=== PATIENT | female | born 1985 | race Caucasian/White ===

== ENCOUNTER 2016-11-14 21:01 | Observation (INO) | payer OTHER ==
[2016-11-14] VITALS (17 sets, daily range): BP systolic 115–125; BP diastolic 63–71; PULSE 79–94; RESP 18; TEMP 98
[~2016-11-14 21:01] MED LIST: IBUP400T20 PO; PERC5TAB12 PO; PROV5TAB PO; ZOFR8TAB4 PO
[2016-11-14] MEDS ORDERED: LACTATED RINGER'S 1000 ML INJ 500 ML IV ONE (21:48)
[2016-11-14] MEDS: LACTATED RINGER'S 1000 ML INJ 1,000 ML IV SCH (21:48)
--- NOTE | 2016-11-14 21:48 | PD ---
HPI Chief Complaint Contractions and back pain Date Seen: Nov 14, 2016 Time Seen: 21:42 Travel History International Travel<30 Days: No Contact w/Intl Traveler<30Days: No Known Affected Area: No History of Present Illness HPI 31-year-old patient Ab1 who comes in at 34 weeks and 1 day complaining of contractions that have increased in frequency and intensity since 4 PM today as well as lower back pain. Patient attempted hydration this afternoon but noticed her contractions continued and became quite painful. Patient denies vaginal discharge, vaginal bleeding. Patient does have good movement. Patient patient has had 2 prior term vaginal deliveries and no history of labor complaints with either this or her previous 2 pregnancies. Patient denies coitus recently and denies antepartum complications with this . Para: 2 : 4 Miscarriage: 1 History Past Medical History Medical History: Denies Significant Hx Obstetric History Obstetric History 2, 7 lbs. 2 oz., 7 lbs. 8 oz. 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 Alcohol Use: No Tobacco Use: No Substance Abuse: No Allergies-Medications (Allergen,Severity, Reaction): Coded Allergies: Cipro (Verified Allergy, Severe, Swelling, HIVES, 11/20/12) Diflucan (Verified Allergy, Severe, SWELLING,HIVES, 11/20/12) Home Meds Reported Medications Ondansetron (Zofran Odt)8 Mg Tab8 Mg PO Q8 PRN (NAUSEA OR VOMITING) 02/18/16 Oxycodone-Acetaminophen 5-325 mg (Percocet 5-325 mg)1 Tab1-2 Tab PO Q4H PRN ( PAIN) Ref 0 02/18/16 Ibuprofen (Motrin)400 Mg Mmo152 Mg PO ONCE #1 TAB 02/18/16 Medroxyprogesterone Acetate (Provera)5 Mg Tab5 Mg PO DAILY 02/18/16 Review of Systems Except as stated in HPI: all other systems reviewed are Neg Physical Exam Narrative GENERAL: Well-nourished, well-developed patient. SKIN: Warm and dry. HEAD: Normocephalic and atraumatic. EYES: No scleral icterus. No injection or drainage. ENT: No nasal drainage noted. Mucous membranes pink. Airway patent. NECK: Supple, trachea midline. No JVD. CARDIOVASCULAR: Regular rate and rhythm without murmurs, gallops, or rubs. RESPIRATORY: Breath sounds equal bilaterally. No accessory muscle use. ABDOMEN/GI: Abdomen soft, non-tender, bowel sounds present, no rebound, no guarding Gravid to [35-] weeks size Fundal Height: [-] GENITOURINARY: External Genitalia: intact and normal in appearance BUS glands: [Normal-] Cervix: [midposition] Dilatation: [1-2] Effacement: [80-] Station: [-2] Presentation: [vtx] Membranes: [intact ] Uterine Contractions: [-q5] FHT's: Category: [-1] Baseline: [140-] Reactive: [Moderate-] Variability: [Moderate-] Decels: [Absent-] EXTREMITIES: No cyanosis or edema. BACK: Nontender without obvious deformity. No CVA tenderness. NEUROLOGICAL: Awake and alert. Motor and sensory grossly within normal limits. Five out of 5 muscle strength in all muscle groups. Normal speech. Data Data Vital Signs Reviewed: Yes MDM Plan at [id number] with threatened labor Plan magnesium sulfate with betamethasone Start Ampicillin for prophylaxis Sonogram in am Dr Stout notified of patient status Diagnosis Diagnosis: Primary Impression: 34 weeks gestation of Additional Impression: Threatened labor, antepartum Rossi Shah MD Nov 14, 2016 21:48
[2016-11-14] MEDS ORDERED: ONDANSETRON HCL 4 MG/2 ML VIAL IV PRN (22:00)
[2016-11-14] MEDS ORDERED: ZOLPIDEM TARTRATE 5 MG TAB PO PRN (22:00)
[2016-11-14] MEDS ORDERED: MAGNESIUM SULFATE 4 GM PREMIX 100 ML IV ONE (22:00)
[2016-11-14] MEDS ORDERED: CALCIUM GLUCONATE 10% 1 GM/10 ML VIAL IV PRN (22:00)
[2016-11-14] MEDS ORDERED: SODIUM CHLORIDE 0.9% FLUSH 10 ML FLUSH IV FLUSH PRN (22:00)
[2016-11-14] MEDS ORDERED: PENICILLIN G POTASSIUM INJ 5,000,000 UNITS in SODIUM CHLORIDE 0.9% INJ 100 ML IV SCH (22:00)
[2016-11-14] MEDS: BETAMETHASONE SOD PHOS/ACETATE SUSP 30 MG/5 ML VIAL IM SCH (22:23)
[2016-11-14] MEDS: MAGNESIUM SULFATE 40 GM PREMIX 1,000 ML IV SCH (22:26)
[2016-11-14 22:41] LABS: AUTOMATED NEUTROPHIL # 9.1 TH/MM3 (1.8-7.7); BASOPHIL % 0.3 % (0.0-2.0); EOSINOPHIL # 0.2 TH/MM3 (0-0.4); EOSINOPHIL % 1.6 % (0.0-4.0); HEMATOCRIT 35.7 % (35.0-46.0); HEMO FLAGS DIFF FINAL; LYMPH % 19.9 % (9.0-44.0); LYMPHOCYTE # 2.6 TH/MM3 (1.0-4.8); MEAN CELL VOLUME 88.7 FL (80.0-100.0); MEAN CORPUSCULAR HEMOGLOBIN 29.7 PG (27.0-34.0); MEAN CORPUSCULAR HGB CONC 33.4 % (32.0-36.0); MONO % 7.1 % (0.0-8.0); NEUT % 71.1 % (16.0-70.0); PLATELET COUNT 172 TH/MM3 (150-450); RED BLOOD COUNT 4.02 MIL/MM3 (4.00-5.30); RED CELL DISTRIBUTION WIDTH 13.6 % (11.6-17.2); WHITE BLOOD COUNT 12.8 TH/MM3 (4.0-11.0)
[2016-11-14 22:50] LABS: AMPHETAMINE, URINE NEG (NEG); BARBITURATES, URINE NEG (NEG); COCAINE, URINE NEG (NEG)
[2016-11-14 23:26] LABS: RUBELLA IGG ANTIBODY 109.5 IU/mL (10.0-500.0); RUBELLA STATUS IMMUNE (IMMUNE)
[2016-11-15] VITALS (201 sets, daily range): BP systolic 105–132; BP diastolic 58–77; PULSE 44–185; RESP 16–18; TEMP 97.8–97.9
[2016-11-15] MEDS ORDERED: PENICILLIN G POTASSIUM INJ 2,500,000 UNITS in SODIUM CHLORIDE 0.9% INJ 100 ML IV SCH ×2
[2016-11-15] MEDS ORDERED: PENICILLIN G POTASSIUM INJ 5,000,000 UNITS in SODIUM CHLORIDE 0.9% INJ 100 ML IV SCH (01:00)
[2016-11-15] MEDS ORDERED: ONDANSETRON HCL 4 MG/2 ML VIAL IV PUSH PRN (01:15)
[2016-11-15] MEDS: PENICILLIN G POTASSIUM INJ 2,500,000 UNITS in SODIUM CHLORIDE 0.9% INJ 100 ML IV SCH ×3 (05:00→13:00)
[2016-11-15] MEDS: LACTATED RINGER'S 1000 ML INJ 1,000 ML IV SCH ×2 (05:48→11:49)
--- NOTE | 2016-11-15 07:25 | MB ---
cc: STEVEN RODRIGUES DATE OF CONSULTATION 11/15/2016 @ 7 a.m. REASON FOR EVALUATION labor, at 34 weeks. HISTORY OF PRESENT ILLNESS The patient is a 31-year-old white female, para 2-0-1-2, LMP of 03/19/2016, EDC of 12/24/2016. She had onset of lower abdominal and back pain at about 4 p.m. yesterday that she was concerned might be labor. She called at 8 p.m. and was advised to come into L&D for evaluation. She was having regular contractions which were painful. She had early dilation of the cervix at 1-2 cm, 70%, vertex, intact, -2. She was seen by Dr. Shah, the hospitalist who conferred with me on the findings of labor. We agreed it would be prudent to start her on magnesium sulfate therapy and give her two doses of to enhance lung maturity and eventually to progress to delivery. She was admitted, placed on magnesium sulfate therapy, received her first dose of steroids and since her contractions have subsided. PAST MEDICAL HISTORY PREVIOUS SURGERY 1. January of 2016 she had laparoscopy, hysteroscopy, D&C. 2. T&A at age 5. MEDICATIONS Vitamins. ALLERGIES CIPRO. DIFLUCAN. PREVIOUS OB HISTORY Term delivery in 2004. In 2005 she had a miscarriage at 9 weeks, required D&C. In 2012 had a term delivery. SOCIAL HISTORY She is . She works in [employer] at [employer]. Alcohol, tobacco and drugs are none. FAMILY HISTORY Non-contributory. PHYSICAL EXAMINATION GENERAL: A well-developed, well-nourished white female. VITAL SIGNS: Stable. HEENT EXAM: Normal. CHEST: Clear. HEART: Regular rate. ABDOMEN: Gravid, nontender. EFW of 2100 grams. PELVIC EXAM: Cervix per Dr. Bhakta, as stated above. EXTREMITIES: Normal. ASSESSMENT As above. PLAN We will plan to continue magnesium sulfate for 24 hours until she can complete steroid therapy and then wean off and if stable discharge home tomorrow. Discussed limitations to treat labor, the risks and benefits of treatment and the patient has been agreeable with the treatment plan. I discussed the plan with her via phone last night after she had seen Dr. Shah as well. MD GUIDO Mcginnis/JEFFERY /7:11 AM /7:15 AM
[2016-11-15] MEDS: SODIUM CHLORIDE 0.9% FLUSH 10 ML FLUSH IV FLUSH SCH ×2 (08:43→20:30)
[2016-11-15 14:12] LABS: RAPID PLASMA REAGIN SCREEN NON-REACTIVE (NON-REACTVE)
[2016-11-15] MEDS: MAGNESIUM SULFATE 40 GM PREMIX 1,000 ML IV SCH ×2 (17:07→21:48)
[2016-11-15] MEDS: BETAMETHASONE SOD PHOS/ACETATE SUSP 30 MG/5 ML VIAL IM SCH (21:55)
[2016-11-16] VITALS (55 sets, daily range): BP systolic 117–127; BP diastolic 57–64; PULSE 72–175; RESP 16
[2016-11-16] MEDS: LACTATED RINGER'S 1000 ML INJ 1,000 ML IV SCH (01:00)
== END 2016-11-16 14:00 | disposition home or self-care (01) ==
LOC: HOBED 21:01 → H2EA 21:44 → UNDOADMIN 21:44 → H2EA 21:52
PROVIDERS: ADMIT Obstetrics & Gynecology; ATTEND Obstetrics & Gynecology
DX: O60.03 Preterm labor without delivery, third trimester (principal); Z3A.34 34 weeks gestation of pregnancy
CPT/HCPCS: 59025; 76816; 80074; 80307; 85025; 86592; 86703; 86762; 86850; 86900; 86901; 99285; G0378; J0702; J2540; J3010; J3475; J7120

== ENCOUNTER 2016-12-07 19:40 | Emergency (ER) | payer BC, OTHER ==
--- NOTE | 2016-12-07 20:51 | PD ---
HPI Chief Complaint Vaginal discharge with possible rupture membranes Date Seen: Dec 07, 2016 Time Seen: 20:46 Travel History International Travel<30 Days: No Contact w/Intl Traveler<30Days: No Known Affected Area: No History of Present Illness HPI 31-year-old at 37 weeks gestation comes in with a watery vaginal discharge that occurred this afternoon 1. Patient denies any further leaking. Patient was admitted at 34 weeks due to labor with cervix at 2 cm, patient states that she had a cervical exam on Sunday when she was 3 cm. Denies regular contractions, vaginal bleeding, or abdominal pain. Patient's had 2 prior vaginal deliveries and recently had a group B strep done in the office Para: 2 : 4 Miscarriage: 1 History Past Medical History Medical History: Denies Significant Hx Obstetric History Obstetric History Spontaneous vaginal delivery 2 Past Surgical History Narrative Surgical D&C Family History Family History: Negative Social History Alcohol Use: No Tobacco Use: No Substance Abuse: No Allergies-Medications (Allergen,Severity, Reaction): Coded Allergies: ciprofloxacin (Unverified Allergy, Severe, Swelling, HIVES, 12/05/16) fluconazole (Unverified Allergy, Severe, SWELLING,HIVES, 12/05/16) Home Meds Reported Medications Ondansetron (Zofran Odt)8 Mg Tab8 Mg PO Q8 PRN (NAUSEA OR VOMITING) 02/18/16 Oxycodone-Acetaminophen 5-325 mg (Percocet 5-325 mg)1 Tab1-2 Tab PO Q4H PRN ( PAIN) Ref 0 02/18/16 Ibuprofen (Motrin)400 Mg [id number] Mg PO ONCE #1 TAB 02/18/16 Medroxyprogesterone Acetate (Provera)5 Mg Tab5 Mg PO DAILY 02/18/16 Review of Systems Except as stated in HPI: all other systems reviewed are Neg Physical Exam Narrative GENERAL: Well-nourished, well-developed patient. SKIN: Warm and dry. HEAD: Normocephalic and atraumatic. EYES: No scleral icterus. No injection or drainage. ENT: No nasal drainage noted. Mucous membranes pink. Airway patent. NECK: Supple, trachea midline. No JVD. CARDIOVASCULAR: Regular rate and rhythm without murmurs, gallops, or rubs. RESPIRATORY: Breath sounds equal bilaterally. No accessory muscle use. BREASTS: Bilateral exam showed no masses , no retractions, no nipple discharge. ABDOMEN/GI: Abdomen soft, non-tender, bowel sounds present, no rebound, no guarding Gravid to [36-] weeks size Fundal Height: [-] GENITOURINARY: External Genitalia: intact and normal in appearance BUS glands: [-Normal] Cervix: [-Posterior] Dilatation: [3-] Effacement: [-50] Station: [--2] Presentation: [-Vertex] Membranes: [intact] Uterine Contractions: [-] Absent FHT's: Category: [-1] Baseline: [-145] Reactive: [-Moderate] Variability: [Moderate-] Decels: [Absent-] EXTREMITIES: No cyanosis or edema. BACK: Nontender without obvious deformity. No CVA tenderness. NEUROLOGICAL: Awake and alert. Motor and sensory grossly within normal limits. Five out of 5 muscle strength in all muscle groups. Normal speech. Data Data Vital Signs Reviewed: Yes [facility] Medical Record Reviewed: Yes Plan 31-year-old at 37 weeks gestation with intact amniotic membranes with a negative amnisure and no fluid noted on exam Follow-up with management sme as scheduled Diagnosis Diagnosis: Primary Impression: 37 weeks gestation of Additional Impressions: Intact amniotic membranes during in third trimester Vaginal discharge during in third trimester Disposition: 01 DISCHARGE HOME Rossi Shah MD Dec 07, 2016 20:50
== END 2016-12-07 20:51 | disposition home or self-care (01) ==
LOC: HOBED 19:40
DX: O26.893 Other specified pregnancy related conditions, third trimester (principal); N89.8 Other specified noninflammatory disorders of vagina; Z3A.37 37 weeks gestation of pregnancy
CPT/HCPCS: 59025; 84112

== ENCOUNTER 2016-12-14 21:19 | Inpatient (IN) | payer BC, OTHER ==
[2016-12-14] VITALS (30 sets, daily range): BP systolic 87–139; BP diastolic 52–95; PULSE 67–102; RESP 18; TEMP 98
--- NOTE | 2016-12-14 21:53 | PD ---
HPI Chief Complaint Contractions Date Seen: Dec 14, 2016 Time Seen: 21:44 Travel History International Travel<30 Days: No Contact w/Intl Traveler<30Days: No Known Affected Area: No History of Present Illness HPI Pt is a 31 yo at 38 weeks and 4 days. EDC 12-24-2016. Pt of Dr Stout. care withut any signficant complications. Pt reports onset of contractions every 5 minutes since about 19:45. No vaginal bleeding or leaking fluid. Pt was seen on OB ED yesterday with possible SROM but was sent home after this was ruled out. She was noted to be 3cm at the time. GBS negative. Weeks Gestation: 38 Para: 2 : 3 History Past Medical History Narrative Medical h/o Anemia Medical History: Denies Significant Hx Past Surgical History Surgical History: No Previous Surgery Family History Family History: Negative Social History Alcohol Use: No Tobacco Use: No Substance Abuse: No Allergies-Medications (Allergen,Severity, Reaction): Coded Allergies: ciprofloxacin (Unverified Allergy, Severe, Swelling, HIVES, 12/05/16) fluconazole (Unverified Allergy, Severe, SWELLING,HIVES, 12/05/16) Home Meds Reported Medications Ondansetron (Zofran Odt) 8 Mg Tab, 8 MG PO Q8 Y for NAUSEA OR VOMITING, TAB 02/18/16 Oxycodone-Acetaminophen 5-325 mg (Percocet 5-325 mg) 1 Tab, 1-2 TAB PO Q4H Y for PAIN, TAB 0 Refills 02/18/16 Ibuprofen (Motrin) 400 Mg Tab, 200 MG PO ONCE, #1 TAB 02/18/16 Medroxyprogesterone Acetate (Provera) 5 Mg Tab, 5 MG PO DAILY, TAB 02/18/16 Review of Systems Except as stated in HPI: all other systems reviewed are Neg Physical Exam Narrative GENERAL: Well-nourished, well-developed patient. SKIN: Warm and dry. HEAD: Normocephalic and atraumatic. EYES: No scleral icterus. No injection or drainage. ENT: No nasal drainage noted. Mucous membranes pink. Airway patent. NECK: Supple, trachea midline. No JVD. CARDIOVASCULAR: Regular rate and rhythm without murmurs, gallops, or rubs. RESPIRATORY: Breath sounds equal bilaterally. No accessory muscle use. BREASTS: Bilateral exam showed no masses , no retractions, no nipple discharge. ABDOMEN/GI: Abdomen soft, non-tender, bowel sounds present, no rebound, no guarding Gravid to [-] weeks size Fundal Height: [-] GENITOURINARY: External Genitalia: intact and normal in appearance BUS glands: [-] Cervix: [soft-] Dilatation: [4cm] Effacement: [70%] Station: [-2] Presentation: [vertex] Membranes: [intact] Uterine Contractions: [every 5 minutes-] FHT's: Category: [Cat 1-] Baseline: [-130s] Reactive: [-] Variability: [moderate] Decels: [-] EXTREMITIES: No cyanosis or edema. BACK: Nontender without obvious deformity. No CVA tenderness. NEUROLOGICAL: Awake and alert. Motor and sensory grossly within normal limits. Five out of 5 muscle strength in all muscle groups. Normal speech. Data Data Vital Signs Reviewed: Yes Group B Strep: Negative MDM Medical Record Reviewed: Yes Plan 38 weeks and 4 days Term labor Will admit Diagnosis Diagnosis: Primary Impression: Indication for care in labor and delivery, antepartum Additional Impression: 38 weeks gestation of Pankaj Chang MD Dec 14, 2016 21:53
[2016-12-14] MEDS ORDERED: LACTATED RINGER'S 1000 ML INJ 1,000 ML IV PRN (21:55)
[2016-12-14] MEDS ORDERED: LACTATED RINGER'S 1000 ML INJ 1,000 ML IV SCH (21:55)
[2016-12-14] MEDS ORDERED: MINERAL OIL 10 ML VIAL TOPICAL PRN (22:00)
[2016-12-14] MEDS ORDERED: CITRIC ACID-SODIUM CITRATE LIQ 30 ML UDC PO SCH (22:00)
[2016-12-14] MEDS ORDERED: LIDOCAINE HCL 1% 50 ML VIAL I-DERMAL PRN (22:00)
[2016-12-14] MEDS ORDERED: SODIUM CHLORID 0.9% 500 ML INJ 500 ML IV PRN (22:00)
[2016-12-14] MEDS ORDERED: OXYTOCIN 30 UNITS-500ML PREMIX 500 ML IV ONE (22:00)
[2016-12-14] MEDS ORDERED: LIDOCAINE HCL 1% 50 ML VIAL INFIL PRN (22:00)
[2016-12-14] MEDS ORDERED: SODIUM CHLOR 0.9% 1000 ML INJ 1,000 ML IV PRN (22:15)
[2016-12-14] MEDS ORDERED: fentaNYL 2MCG-BUPIV 0.125% INJ 100 ML ONE (22:59)
[2016-12-14 23:06] LABS: AUTOMATED NEUTROPHIL # 8.4 TH/MM3 (1.8-7.7); BASOPHIL % 0.3 % (0.0-2.0); EOSINOPHIL # 0.2 TH/MM3 (0-0.4); EOSINOPHIL % 1.7 % (0.0-4.0); HEMATOCRIT 36.3 % (35.0-46.0); HEMO FLAGS DIFF FINAL; LYMPH % 21.5 % (9.0-44.0); LYMPHOCYTE # 2.6 TH/MM3 (1.0-4.8); MEAN CELL VOLUME 89.3 FL (80.0-100.0); MEAN CORPUSCULAR HEMOGLOBIN 30.3 PG (27.0-34.0); MEAN CORPUSCULAR HGB CONC 33.9 % (32.0-36.0); MONO % 6.6 % (0.0-8.0); NEUT % 69.9 % (16.0-70.0); PLATELET COUNT 172 TH/MM3 (150-450); RED BLOOD COUNT 4.07 MIL/MM3 (4.00-5.30); RED CELL DISTRIBUTION WIDTH 14.7 % (11.6-17.2); WHITE BLOOD COUNT 12.1 TH/MM3 (4.0-11.0)
--- NOTE | 2016-12-14 23:07 | MH ---
cc: STEVEN RODRIGUES DATE OF ADMISSION 12/14/2016 ADMISSION DIAGNOSIS Term , early labor. HISTORY OF PRESENT ILLNESS The patient is a 31-year-old white female para 2-0-1-2 with EDC of 12/24/2016. She had admission and treatment of labor at 34 weeks and responded well to magnesium therapy and received steroids at that time. She reports increasing contractions since about 07:45 p.m. this evening, increased mucousy discharge with spotting but no membrane rupture. She is now admitted in labor with a change in cervix from three in the office earlier in the week to now being 4 cm. PAST MEDICAL HISTORY/PREVIOUS SURGERIES 1. T&A age [age], 2. laparoscopy and D&C in 2016 ALLERGIES CIPRO DIFLUCAN TRANSFUSIONS None. OBSTETRICAL HISTORY Two vaginal deliveries, one spontaneous required D&C. SOCIAL HISTORY She is . She works in [employer]. Alcohol, tobacco and drugs are none. FAMILY HISTORY Noncontributory. PHYSICAL EXAMINATION GENERAL: A gravid white female. VITAL SIGNS: Stable. HEENT: Exam is normal. CHEST: Clear. HEART: Regular rate. BREASTS: Large ABDOMEN: Gravid. EFW of 37 grams. Cervix is 4__ vertex zero station, AROM clear. PLAN She is now admitted, will receive epidural. If she has any slowly in labor we will start Pitocin augmentation. Anticipate vaginal delivery. MD GUIDO Mcginnis/ /10:41 PM /10:56 PM
[2016-12-15] VITALS (30 sets, daily range): BP systolic 100–132; BP diastolic 34–91; PULSE 69–117; RESP 14–20; TEMP 97.9–98.3; O2SAT 98
[2016-12-15] MEDS ORDERED: ePHEDrine/NS 25 MG/5 ML SYR IV PRN (00:15)
[2016-12-15] MEDS ORDERED: fentaNYL 2MCG-BUPIV 0.125% 100 ML EPIDURAL SCH (00:15)
[2016-12-15] MEDS ORDERED: DO NOT ADMINISTER ANTICOAGULANTS PRN (00:15)
[2016-12-15] MEDS ORDERED: NO SYSTEM NARCOTICS PRN (00:15)
[2016-12-15] MEDS ORDERED: OXYTOCIN 30 UNITS-500ML PREMIX 500 ML IV SCH (01:45)
[2016-12-15] MEDS ORDERED: ACETAMINOPHEN 325 MG TAB PO PRN (01:45)
[2016-12-15] MEDS ORDERED: ALUMINUM/MAGNESIUM/SIMETH 30 ML CUP PO PRN (01:45)
[2016-12-15] MEDS ORDERED: ZOLPIDEM TARTRATE 5 MG TAB PO PRN (01:45)
[2016-12-15] MEDS ORDERED: SODIUM CHLORIDE 0.9% FLUSH 10 ML FLUSH IV FLUSH PRN (01:45)
[2016-12-15] MEDS ORDERED: BENZOCAINE 20% TOPICAL SPRAY 60 ML CAN TOPICAL PRN (01:45)
[2016-12-15] MEDS ORDERED: ONDANSETRON ODT 4 MG TAB PO PRN (01:45)
[2016-12-15] MEDS ORDERED: DOCUSATE SODIUM 50 MG/SENNA 8.6 MG TAB PO PRN (01:45)
[2016-12-15] MEDS: WITCH HAZEL 50%/GLYCERIN 12.5% 40 PAD JAR TOPICAL PRN (05:03)
[2016-12-15] MEDS: IBUPROFEN 600 MG TAB PO PRN ×3 (05:04→18:25)
[2016-12-15] MEDS ORDERED: SODIUM CHLORIDE 0.9% FLUSH 10 ML FLUSH IV FLUSH SCH (09:00)
[2016-12-15] MEDS ORDERED: DIPHTH/TETANUS/ACEL PERTUSSIS (BOOSTER) 0.5 ML VIAL/PFS IM ONE (16:00)
[2016-12-15] MEDS ORDERED: MEASLES, MUMPS, RUBELLA VACCINE 0.5 ML VIAL SQ ONE (16:00)
[2016-12-15] MEDS: oxyCODONE/ACETAMINOPHEN 5 MG/325 MG TAB PO PRN (22:39)
[2016-12-16] MEDS: IBUPROFEN 600 MG TAB PO PRN ×4 (03:21→23:05)
[2016-12-16] MEDS: oxyCODONE/ACETAMINOPHEN 5 MG/325 MG TAB PO PRN ×5 (03:21→23:04)
[2016-12-16 04:00] LABS: AUTOMATED NEUTROPHIL # 6.5 TH/MM3 (1.8-7.7); BASOPHIL % 0.3 % (0.0-2.0); EOSINOPHIL # 0.2 TH/MM3 (0-0.4); HEMO FLAGS DIFF FINAL; LYMPH % 27.7 % (9.0-44.0); LYMPHOCYTE # 2.9 TH/MM3 (1.0-4.8); MEAN CORPUSCULAR HEMOGLOBIN 31.2 PG (27.0-34.0); MEAN CORPUSCULAR HGB CONC 34.7 % (32.0-36.0); MONO % 7.4 % (0.0-8.0); NEUT % 62.6 % (16.0-70.0); PLATELET COUNT 132 TH/MM3 (150-450); RED BLOOD COUNT 3.55 MIL/MM3 (4.00-5.30); RED CELL DISTRIBUTION WIDTH 14.7 % (11.6-17.2); WHITE BLOOD COUNT 10.4 TH/MM3 (4.0-11.0)
[2016-12-16] MEDS: WITCH HAZEL 50%/GLYCERIN 12.5% 40 PAD JAR TOPICAL PRN (09:33)
[2016-12-16 10:06] VITALS: BP 112/76; PULSE 76; RESP 20; TEMP 98.3
[2016-12-16 16:30] VITALS: BP 129/76; PULSE 75; RESP 16; TEMP 98.1
[2016-12-16 20:45] VITALS: BP 113/78; PULSE 74; RESP 18; TEMP 97.8
[2016-12-16 23:20] VITALS: BP 109/79; PULSE 79; RESP 18; TEMP 98
[2016-12-17 03:10] VITALS: BP 109/70; PULSE 79; RESP 18; TEMP 98
[2016-12-17] MEDS: oxyCODONE/ACETAMINOPHEN 5 MG/325 MG TAB PO PRN (03:11)
[2016-12-17 07:25] VITALS: BP 118/70; PULSE 76; RESP 20; TEMP 98.4
[2016-12-17] MEDS: IBUPROFEN 600 MG TAB PO PRN (09:37)
--- NOTE | 2016-12-17 09:48 | HHI.DCPOC ---
Discharge Care Plan Report Symptoms to Your Doctor -Temperature above 100.5 degrees -Redness, of incision or excessive or foul smelling drainage -Unusual pain or calf pain -Increased vaginal bleeding -Painful or difficulty urinating -Feelings of extreme sadness or anxiety after 2 weeks Goals to Promote Your Health * To prevent worsening of your condition and complications * To maintain your health at the optimal level Directions to Meet Your Goals Take your medications as prescribed Follow your dietary instruction Follow activity as directed Ensure plenty of rest for recovery Drink fluids for hydration Keep your appointments as scheduled Take your immunizations and boosters as scheduled If your symptoms worsen call your PCP, if no PCP go to Urgent Care Center or Emergency Room Smoking is Dangerous to Your Health. Avoid second hand smoke Call the 24-hour crisis hotline for domestic abuse at Benton Stout MD Dec 17, 2016 09:48
--- NOTE | 2016-12-20 10:30 | MD ---
cc: STEVEN RODRIGUES ADMISSION DATE: 12/14/2016 DISCHARGE DATE: 12/17/2016 ADMITTING DIAGNOSIS Term , active labor. DISCHARGE DIAGNOSIS Term , active labor, delivered. HISTORY OF PRESENT ILLNESS The patient is a 31-year-old white female, para 2-0-1-2, with an EDC of 12/24/2016 by early ultrasound. Her course was benign. HOSPITAL COURSE The patient was admitted in labor on the evening of 12/14/2016, received epidural anesthesia and progressed to a spontaneous vaginal delivery on the pack mule worker of 12/15/2016, a viable vigorous male, Apgars 9 and 9, weight 8 pounds 12 ounces. She had a small second-degree tear repaired with chromic suture. she did well and was discharged home in excellent condition on 12/17/2016. She was carefully instructed in , perineal and circumcision care. She received RhoGAM prior to discharge. She will return to see me in 6 weeks and call for abnormal pain, bleeding, temperature, signs of infection or depression. She was given a script for Percocet 5, 1-2 p.o. q.4h. p.r.n. pain, #30. MD GUIDO Mcginnis/SUNNY /9:50 AM /10:17 AM
== END 2016-12-17 11:21 | disposition home or self-care (01) | DRG 775 ==
LOC: HOBED 21:19 → H2EB 22:07 → H1EA 12-15 03:56
PROVIDERS: ADMIT Obstetrics & Gynecology; ATTEND Obstetrics & Gynecology
PROC: 10907ZC Drainage of Amniotic Fluid, Therapeutic from Products of Conception, Via Natural or Artificial Opening (ICD-10-PCS; 2016-12-14)
PROC: 10E0XZZ Delivery of Products of Conception, External Approach (ICD-10-PCS; principal; 2016-12-15)
DX: O26.893 Other specified pregnancy related conditions, third trimester (principal); Z37.0 Single live birth; Z3A.38 38 weeks gestation of pregnancy
CPT/HCPCS: 59025; 85025; 85461; 86850; 86900; 86901; 90384; 90715; J2590; J2790

== ENCOUNTER → 2017-01-22 | Outpatient (CLI) | payer BC, OTHER ==
[~2017-01-22] MED LIST changes: -PROV5TAB PO; -ZOFR8TAB4 PO
[2017-01-22 13:58] LABS: AUTOMATED NEUTROPHIL # 4.7 TH/MM3 (1.8-7.7); BASOPHIL % 0.4 % (0.0-2.0); EOSINOPHIL # 0.4 TH/MM3 (0-0.4); EOSINOPHIL % 4.4 % (0.0-4.0); HEMATOCRIT 40.1 % (35.0-46.0); HEMO FLAGS DIFF FINAL; LYMPH % 28.8 % (9.0-44.0); LYMPHOCYTE # 2.3 TH/MM3 (1.0-4.8); MEAN CORPUSCULAR HEMOGLOBIN 29.5 PG (27.0-34.0); MEAN CORPUSCULAR HGB CONC 33.9 % (32.0-36.0); MONO % 6.9 % (0.0-8.0); NEUT % 59.5 % (16.0-70.0); PLATELET COUNT 214 TH/MM3 (150-450); RED CELL DISTRIBUTION WIDTH 13.8 % (11.6-17.2); WHITE BLOOD COUNT 7.9 TH/MM3 (4.0-11.0)
[2017-01-22 14:01] LABS: BLOOD, URINE NEG (NEG); GLUCOSE,URINE NEG (NEG); KETONE, URINE NEG (NEG); NITRITE,URINE NEG (NEG); SQUAMOUS EPITHELIAL CELL URINE 4 /hpf (0-5); URINE COLOR YELLOW (YELLW/STRAW)
[2017-01-22 14:06] LABS: COMMENT (UR) CULT NOT INDICATED; CULTURE IF INDICATED CULT NOT INDICATED
--- NOTE | 2017-01-23 16:37 | EKG ---
Date Performed: 01/22/2017 Time Performed: 13:37:16 PTAGE: 31 years EKG: Sinus rhythm WITH SINUS ARRHYTHMIA NORMAL ECG NO PREVIOUS TRACING DOCTOR: Chelly Lemon Interpretating Date/Time 01/23/2017 16:33:53
== END ==
LOC: CPRE 13:16
PROVIDERS: ATTEND Obstetrics & Gynecology
DX: Z01.810 Encounter for preprocedural cardiovascular examination (principal); Z01.812 Encounter for preprocedural laboratory examination; Z30.2 Encounter for sterilization; I49.9 Cardiac arrhythmia, unspecified
CPT/HCPCS: 36415; 81001; 84703; 85025; 93005

== ENCOUNTER → 2017-01-24 | Day surgery (SDC) | payer BC, OTHER ==
--- NOTE | 2017-01-23 17:47 | MH ---
cc: STEVEN RODRIGUES DATE OF ADMISSION 01/24/2017 ADMISSION DIAGNOSIS Desires sterilization. HISTORY OF PRESENT ILLNESS The patient is a 31-year-old white female para 3-0-1-3 now admitted for elective sterilization. PAST MEDICAL HISTORY Previous surgery: 1. She had laparoscopy and D&C in January of 2016. 2. She had T&A age [age]. ALLERGIES ARE TO CIPRO AND DIFLUCAN. MEDICATIONS Vitamins. TRANSFUSIONS None. OBSTETRICAL HISTORY Three vaginal deliveries most recent 12/14/2016. She had one spontaneous 2006 required D&C. SOCIAL HISTORY She is . She is employed. Alcohol, tobacco and drugs are none. FAMILY HISTORY Her family history is noncontributory. PHYSICAL EXAMINATION GENERAL: Physical examination reveals a well-nourished, well-developed white female. VITAL SIGNS: Stable. HEENT: Exam is normal. CHEST: Clear. HEART: Regular rate. BREASTS: The breasts are symmetrical. ABDOMEN: Benign. PELVIC: Exam normal external genitalia and BUS. Vagina is normal. Cervix is normal. Uterus normal size, shape, anterior. No adnexal masses. ASSESSMENT As above. PLAN She is now admitted for permanent sterilization. While in the office I explained the procedures, the risks, benefits and complications. She is aware the procedure is permanent, non reversible with a small risk of failure. She would like to proceed. MD GUIDO Mcginnis/KK /5:18 PM /5:32 PM
[~2017-01-24] VITALS: Ht 162.6 cm; Wt 83.3 kg
[~2017-01-24] MED LIST changes: +ACETAMINOPHEN 1000 MG/100 ML VIAL IV ONE; +BUPIVACAINE/EPINEPHRINE 0.25% 50 ML VIAL ONE; +CHLORHEXIDINE GLUCONATE 2 % 1 PACK (2 CLOTHS) TOPICAL PRN; +DO NOT ADM ANY ANTICOAGULANT DRUGS PRN; +GLYCOPYRROLATE 1 MG/5 ML SYRINGE IV PUSH ONE; -IBUP400T20 PO; +INSULIN HUMAN REGULAR 1,000 UNITS/10 ML VIAL SQ PRN; +KETOROLAC TROMETHAMINE 60 MG/2 ML (IM) VIAL IM ONE; +LACTATED RINGER'S 1000 ML IV PRN; +LIDOCAINE HCL 1% PF 5 ML AMPULE OTHER ONE; +METOCLOPRAMIDE HCL 10 MG/2 ML VIAL IV PRN; +METOPROLOL TARTRATE 25 MG TAB PO PRN; +MIDAZOLAM HCL 2 MG/2 ML VIAL ONE; +NEOSTIGMINE 3 MG/3 ML SYR IV ONE; +ONDANSETRON HCL 4 MG/2 ML VIAL IV PUSH ONE; +ONDANSETRON HCL 4 MG/2 ML VIAL ONE; -PERC5TAB12 PO; +POVIDONE IODINE 5% (ANTISEPSIS KIT) 4 APPLICATIONS EACH NARE PRN; +PROPOFOL 200 MG/20 ML AMP IV ONE; +ROCURONIUM INJ 50 MG/5 ML SYRINGE IV PUSH ONE; +SODIUM CHLORID 0.9% 500 ML IV PRN; +ceFAZolin 1,000 MG/NS 100 ML IV SCH; +oxyCODONE/ACETAMINOPHEN 5 MG/325 MG TAB PO PRN
--- NOTE | 2017-01-24 08:56 | MP ---
cc: STEVEN RODRIGUES DATE OF SURGERY: 01/24/2017 PREOPERATIVE DIAGNOSIS Multiparity, desires sterility. POSTOPERATIVE DIAGNOSIS Multiparity, desires sterility. PROCEDURE Laparoscopic partial bilateral salpingectomy. ANESTHESIA General ET. SURGEON Steven Rodrigues MD. RECREATION FACILITY MANAGER VINI Costa. ESTIMATED BLOOD LOSS Less than 5 cc. FLUIDS Half liter crystalloid. OBJECTIVE FINDINGS Following the induction of adequate general endotracheal anesthesia the patient was prepped and draped supine on the operating table in the dorsal lithotomy position in the usual sterile fashion with the bladder being drained via in and out catheterization. Exam under anesthesia revealed a normal size and shape retroverted uterus, no adnexal masses. The abdomen was opened through a 0.5 cm umbilical incision. A 5 port was placed followed by the laparoscope with attached video cam. A 10 port was placed in the left lower quadrant and a second 5 right lower quadrant. The uterus was normal size and shape, normal tubes, normal ovaries, normal cul-de-sacs, normal liver edge, retroverted. The Harmonic scalpel was used to take the left fallopian tube from the fimbria to the isthmic region, extracted through the larger port and the same on the right. One area of bleeding on the right mesosalpinx was treated with the Harmonic, coated with Berenice and observed with low pressure for no bleeding. The large port was now removed and the CrossBow device was used with 2-0 Vicryl to close the fascia. The skin was injected with 5 cc of Marcaine 0.25% with epinephrine and skin closed with running 3-0 Vicryl. Inspection revealed the ports to be well-closed. Inspection of the pelvis revealed no bleeding. The scope was now removed, gas was allowed to escape. The small ports were removed and infiltrated each with 2.5 cc of 0.25% Marcaine with epinephrine and closed with 3-0 Monocryl subcuticular. Dermabond was applied. All counts were correct and the patient was awakened and taken to the recovery room in good condition. MD GUIDO Mcginnis/SUNNY /8:16 AM /8:35 AM
[2017-01-24 11:01] VITALS: BP 117/73; PULSE 61; RESP 16; TEMP 97.7; O2SAT 99
== END | disposition home or self-care (01) ==
LOC: HSDC 05:41
PROVIDERS: ATTEND Obstetrics & Gynecology
DX: Z30.2 Encounter for sterilization (principal)
CPT/HCPCS: 00840; 58661; 88302; J0131; J0690; J1885; J2250; J2405; J2710; J3010; J7120

== ENCOUNTER 2018-06-05 10:47 | Observation (INO) ==
[2018-06-05] MEDS ORDERED: Sodium Chlor 0.9% Inj 500 ML IV.CONT ONE (11:45)
[2018-06-05] MEDS ORDERED: Chlorhexidine Gluconate 2% 1 Pack (2 Cloths) TOPICAL ONE (11:45)
[2018-06-05] MEDS ORDERED: Metoprolol Tartrate 25 MG Tablet PO ONE (11:45)
[2018-06-05] MEDS ORDERED: ceFAZolin 2 GM Premix Inj 2 GM/50 ML PIGGYBACK IV.SIG SCH (12:00)
[2018-06-05] MEDS ORDERED: fentaNYL Citrate Inj 250 MCG/5 ML Ampul ONE (12:01)
[2018-06-05] MEDS ORDERED: Sodium Chlor 0.9% Inj 20 ML ONE (12:01)
[2018-06-05] MEDS ORDERED: Bupivacaine Liposomal PF 1.3% Inj 20 ML Vial ONE (12:01)
[2018-06-05] MEDS ORDERED: Glycopyrrolate Inj 1 MG/5 ML Syringe IV.PUSH ONE (12:46)
[2018-06-05] MEDS ORDERED: Neostigmine Inj 5 MG/5 ML Syringe IV.PUSH ONE (12:46)
[2018-06-05] MEDS ORDERED: Ketorolac Inj 30 MG/ML (IVP) Vial IV.PUSH ONE (12:46)
[2018-06-05] MEDS ORDERED: Lidocaine PF 1% Inj 5 ML Syringe OTHER ONE (12:46)
[2018-06-05] MEDS ORDERED: Famotidine PF Inj 20 MG/2 ML Vial ONE (12:48)
[2018-06-05] MEDS ORDERED: HYDROmorphone PF Inj 1 MG/ML Ampul IV.PUSH PRN (14:08)
[2018-06-05] MEDS ORDERED: Zolpidem Tartrate 5 MG Tablet PO PRN (14:08)
--- NOTE | 2018-06-05 14:39 | MP ---
cc: Benton Stout MD DATE OF OPERATION: 06/05/2018 PREOPERATIVE DIAGNOSES: 1. Menorrhagia. 2. Dysmenorrhea. POSTOPERATIVE DIAGNOSES: 1. Menorrhagia. 2. Dysmenorrhea. 3. Probably secondary to adenomyosis. PROCEDURE PERFORMED: Laparoscopic supracervical hysterectomy (LASH) with bilateral salpingectomy. ANESTHESIA: General, ET. SURGEON: Benton Stout MD METALLURGICAL LAB TECHNICIAN: VINI Costa ESTIMATED BLOOD LOSS: 100 mL. FLUIDS: 1 liter of crystalloid. OBJECTIVE FINDINGS: Following induction of adequate general ET anesthesia, the patient was prepped and draped supine on the operating table in dorsal lithotomy position in usual sterile fashion, with the bladder being drained via San catheterization. The abdomen was opened through a 3 cm curving infraumbilical incision using a knife to cut down through the skin to the fascia. The fascia opened transversely, stripped from the muscles, rectus muscles split in the midline and the peritoneum opened bluntly with fingertips. The mini GelPort was placed. Laparoscope was inserted. A 5 port placed in left lower quadrant and an AirSeal on the right. Pelvic contents revealed normal ovaries. The tubes were largely absent from previous interruption. Cul-de-sacs were clear. Uterus was symmetrically enlarged, about 12-week size, consistent with adenomyosis. Appendix was normal. The liver edge was normal. Working first on the left, the Harmonic scalpel was used to take the left mesosalpinx, left round ligament, left broad ligament, left side of the bladder flap and left uterine vessels and same on the right. The Harmonic scalpel was now used to amputate the fundus from the cervix. The pouch was inserted and the fundus and tubal remnants extracted in the pouch intact. Irrigation performed. Low pressure tests were done. There was some minor oozing on the cervix. Both ureters were inspected with good peristalsis. The operative sites were coated with FloSeal to good effect and then coated with Tisseel with no bleeding. Low-pressure tests were done in the neutral and Trendelenburg positions. There was no bleeding. The scope was now removed. The GelPort was removed. The peritoneum sutured with a running 2-0 Vicryl, the fascia with a running locking stitch of 0 Vicryl corner in the midline and tied, subcutaneous with running 3-0 Vicryl, the skin with a running subcuticular 3-0 Monocryl. The scope was now used through the lower port site to inspect the GelPort site which had a good closure with no entrapment of tissue. The pelvis inspected. There was no bleeding. The scope was now removed and gas was allowed to escape. Small ports were removed and sutured with 3-0 Monocryl subcuticular and Dermabond. Final counts were correct and the patient was awakened and taken to the recovery room in good condition. MD GUIDO Mcginnis/ernie , 02:17 PM , 02:24 PM
[2018-06-05] MEDS ORDERED: *Meperidine Inj 25 MG/ML Vial PERIprocedural Use ONLY ONE (14:48)
[2018-06-05] MEDS ORDERED: KCL 20 mEq/D5W/NaCl 0.45% Inj 1,000 ML ONE (14:56)
[2018-06-05] MEDS ORDERED: *Ondansetron Inj 4 MG/2 ML Vial PERIprocedural Use ONLY ONE (14:56)
[2018-06-05] MEDS: KCL 20 mEq/D5W/NaCl 0.45% Inj 1,000 ML IV.CONT SCH ×2 (15:00→23:35)
[2018-06-05] MEDS: Ketorolac Inj 30 MG/ML (IVP) Vial IV.PUSH SCH ×2 (16:33→23:47)
[2018-06-05 21:09] LABS: Hematocrit 37.3 % (35.0-46.0); Hemoglobin 12.9 gm/dL (11.6-15.3); Mean Corpuscular HGB Conc 34.5 % (32.0-36.0); Mean Corpuscular Hemoglobin 29.6 pg (27.0-34.0); Mean Corpuscular Volume 85.7 fL (80.0-100.0); Mean Platelet Volume 8.4 fL (7.0-11.0); Platelet Count 204 th/mm3 (150-450); Red Blood Count 4.35 mil/mm3 (4.00-5.30); Red Cell Distribution Width 12.7 % (11.6-17.2); White Blood Count 11.4 th/mm3 (4.0-11.0)
[2018-06-05] MEDS: Docusate Sodium 100 MG Capsule PO SCH (23:08)
[2018-06-06] MEDS ORDERED: Ketorolac Inj 30 MG/ML (IVP) Vial IV.PUSH SCH (06:00)
[2018-06-06 06:06] LABS: Baso % (Auto) 0.2 % (0.0-2.0); Eos % (Auto) 0.1 % (0.0-4.0); Hematocrit 35.3 % (35.0-46.0); Hemoglobin 12.2 gm/dL (11.6-15.3); Lymph # (Auto) 1.7 th/mm3 (1.0-4.8); Lymph % (Auto) 11.9 % (9.0-44.0); Mean Corpuscular HGB Conc 34.6 % (32.0-36.0); Mean Corpuscular Hemoglobin 29.8 pg (27.0-34.0); Mean Corpuscular Volume 85.9 fL (80.0-100.0); Mean Platelet Volume 8.1 fL (7.0-11.0); Mono % (Auto) 6.9 % (0.0-8.0); Neut # (Auto) 11.8 th/mm3 (1.8-7.7); Neut % (Auto) 80.9 % (16.0-70.0); Platelet Count 223 th/mm3 (150-450); Red Blood Count 4.11 mil/mm3 (4.00-5.30); Red Cell Distribution Width 12.7 % (11.6-17.2); White Blood Count 14.6 th/mm3 (4.0-11.0)
[2018-06-06 06:38] LABS: Anion Gap 7 meq/L (5-15); Blood Urea Nitrogen 5 mg/dL (7-18); Calcium 7.5 mg/dL (8.5-10.1); Carbon Dioxide 24.8 meq/L (21.0-32.0); Chloride 109 meq/L (98-107); Glomerular Filtration Rate Greater Than 89 mL/min (>89); Glucose,Random 151 mg/dL (74-106); Potassium 3.9 meq/L (3.5-5.1); Sodium 141 meq/L (136-145)
[2018-06-06] MEDS: Docusate Sodium 100 MG Capsule PO SCH (08:22)
--- NOTE | 2018-06-06 09:58 | MH ---
cc: Benton Stout MD DATE OF ADMISSION: 06/05/2018 Corrected Copy: 06/06/18 MAIN DIAGNOSIS: Menorrhagia dysmenorrhea. HISTORY OF PRESENT ILLNESS: The patient is a 33-year-old white female, para 3-0-1-3, returned for evaluation on 09/25/2017 reporting it with resumption of periods since the of her last child. There is increasingly heavy menstrual flow and menstrual pain. She had an initial biopsy that day, which was benign. A CBC was normal and a pelvic ultrasound showed a . CURRENT MEDICATIONS: Vitamins. ALLERGIES: CIPRO AND DIFLUCAN. TRANSFUSIONS: None. OB HISTORY: Three term deliveries, one spontaneous in 2005 required D and C. SOCIAL HISTORY: She is . She is employed. Alcohol, tobacco, and drugs are none. FAMILY HISTORY: Noncontributory. REVIEW OF SYSTEMS: Negative. PHYSICAL EXAMINATION: GENERAL: This is a well-nourished, well-developed white female. VITAL SIGNS: Stable. HEENT: Normal. CHEST: Clear. HEART: Regular rate. BREASTS: Symmetrical. ABDOMEN: Benign. PELVIC: Vagina is normal. Cervix is normal with good support. The uterus is about 12-week size anterior. Adnexa nonpalpable. ASSESSMENT: As above. PLAN: She is now admitted for laparoscopy with a planned LASH salpingectomy, possible ROXIE. While in the office, the risks and benefits, complication were explained and accepted. MD GUIDO Mcginnis/clemente/do , 09:14 PM , 09:18 PM
== END 2018-06-06 10:07 | disposition home or self-care (01) ==
LOC: H1EA 10:47 → HSDC 10:47 → H1EA 15:25
PROVIDERS: ADMIT Obstetrics & Gynecology; ATTEND Obstetrics & Gynecology
PROC: LAPLASH (ICD-10-PCS; 2018-06-05 12:46)
DX: N94.6 Dysmenorrhea, unspecified; N92.0 Excessive and frequent menstruation with regular cycle; N80.0 Endometriosis of uterus
CPT/HCPCS: 80048; 85025; 85027; 88307; 94150; 96361; 96365; 96375; 96376; C9290; G0378; J0131; J0690; J1100; J1885; J2175; J2405; J2704; J2710; J3010; J3480; J7120